=== PATIENT | female | born 1940 | race Caucasian/White ===

== ENCOUNTER → 2020-06-17 | Outpatient (CLI) | payer MEDICARE ==
[~2020-06-17] MED LIST: ADV250INH INH; METO1TAB32 PO; ROSU10TA6 PO; SYNT100T PO
== END ==
LOC: M LABSMTC 09:13
PROVIDERS: ATTEND Anesthesiology
DX: Z01.812 Encounter for preprocedural laboratory examination (principal); Z20.828 Contact with and (suspected) exposure to other viral communicable diseases
CPT/HCPCS: C9803; U0003

== ENCOUNTER 2020-06-21 08:16 | Day surgery (SDC) | payer MEDICARE ==
[~2020-06-21] VITALS: Ht 167.6 cm; Wt 58.5 kg
[2020-06-21] MEDS: D5W 1,000 ML IV SCH ×3 (08:45→11:09)
[2020-06-21] MEDS ORDERED: ALBUTEROL SULFATE 2.5 MG/0.5 ML INH NEB SOLN INH ONE ×2 (09:15)
[2020-06-21] MEDS ORDERED: LIDOCAINE 4% INJ 5ML AMP NEB ONE (09:15)
[2020-06-21] MEDS ORDERED: EPINEPHrine 1MG/10ML SYRINGE 1.5IN As Ordered ONE ×2 (09:26→09:31)
[2020-06-21] MEDS ORDERED: LIDOCAINE VISCOUS 2% SOLN 15ML UDC As Ordered ONE (09:26)
[2020-06-21] MEDS ORDERED: LIDOCAINE 1% MDV 20ML VIAL As Ordered ONE (09:26)
[2020-06-21] MEDS ORDERED: CETACAINE SPRAY 5GM As Ordered ONE (09:28)
[2020-06-21] MEDS ORDERED: PHENYLEPHRINE 0.5% NASAL SPRAY 15 ML As Ordered ONE (09:28)
[2020-06-21] MEDS ORDERED: LIDOCAINE 4% INJ 5ML AMP As Ordered ONE (09:28)
[2020-06-21] MEDS ORDERED: MIDAZOLAM INJ 2MG/2ML VIAL (J2250 PER 1MG) As Ordered ONE ×2 (09:32→09:33)
[2020-06-21] MEDS ORDERED: fentaNYL 100 MCG/2 ML INJECTION (J3010) As Ordered ONE (09:34)
[2020-06-21] MEDS ORDERED: MIDAZOLAM INJ 2MG/2ML VIAL (J2250 PER 1MG) IV ONE ×2 (09:56→10:03)
[2020-06-21] MEDS ORDERED: fentaNYL 100 MCG/2 ML INJECTION (J3010) IV ONE (09:56)
[2020-06-21] MEDS ORDERED: THROMBIN SOLN 5,000 UNITS VIAL As Ordered ONE (10:19)
[2020-06-21 11:15] VITALS: BP 129/69
--- NOTE | 2020-06-28 09:32 | RO ---
DATE OF OPERATION: 06/21/2020 PROCEDURE: Fiberoptic bronchoscopy with wash, brushes, and photos. SURGEON: Migue Jordan MD PREOPERATIVE DIAGNOSIS: Abnormal CT scan. POSTOPERATIVE DIAGNOSIS: Abnormal CT scan, chronic obstructive bronchitis, and extrinsic compression of the left lower lobe. Informed consent was obtained prior to the procedure. ANESTHESIA: Conscious sedation with 4 mg of intravenous Versed and 25 mcg of intravenous Fentanyl, both given sequentially and titrated for effect. Local anesthesia was 2% viscous Xylocaine Other medications were 2% viscous Xylocaine in the nose, Cetacaine spray in the pharynx, 1% Xylocaine via the bronchoscope. Other medications: Topical thrombin 5000 units via the bronchoscope. PROCEDURE: After the patient was identified and the above anesthesia given, the fiberoptic bronchoscope was easily passed via the right naris. Hypopharynx was entered and appeared normal. Vocal cords moved well. Trachea widely patent. Tamara was sharp and moved well. Right lung was entered first. All segments, subsegments, upper, middle and lower lobes easily identified, widely patent. Diffuse changes of chronic bronchitis were noted. Left lung was then entered. Left mainstem widely patent. Left upper lobe easily identified. Again, changes of chronic bronchitis were noted. Thick retained secretions were noticed in the left lower lobe bronchus. These were suctioned and clear. The bronchus to the left lower lobe just past the takeoff of the superior segment showed significant medial compromise extrinsically. Mucosa was intact. I was barely able to get the scope past it to the distal subsegments. Some secretions were encountered. Additionally the airways appeared open without any other focal endobronchial mucosa or abnormalities. Washes and brushes of the area were taken but given the fact that this was submucosal, biopsies of this area were not taken. Some mild bleeding was encountered, easily controlled with topical saline lavage and topical thrombin. When adequate hemostasis was achieved, the scope was then withdrawn and the procedure terminated. The patient was taken to the recovery area in good and stable condition. No immediate complications of conscious sedation were identified. CHRISTA
== END 2020-06-21 11:28 | disposition home or self-care (01) ==
LOC: M OPP 08:16
PROVIDERS: ATTEND Internal Medicine Pulmonary Disease
DX: J42 Unspecified chronic bronchitis (principal); J98.09 Other diseases of bronchus, not elsewhere classified; R91.8 Other nonspecific abnormal finding of lung field
CPT/HCPCS: 31623; 31625; 87070; 87077; 87102; 87116; 87184; 87205; 87206; 88104; J2250; J3010

== ENCOUNTER → 2020-10-01 | Outpatient (CLI) | payer MEDICARE ==
[~2020-10-01] MED LIST changes: +LABE100T4 PO; +OMEP-221 PO; +SPIR1CAP INH
== END ==
LOC: M LABSMTC 08:04
PROVIDERS: ATTEND Anesthesiology
DX: Z01.812 Encounter for preprocedural laboratory examination (principal); Z20.822 Contact with and (suspected) exposure to COVID-19

== ENCOUNTER 2020-10-06 11:49 | Day surgery (SDC) | payer MEDICARE ==
[~2020-10-06] VITALS: Ht 167.6 cm; Wt 61.1 kg
[2020-10-06] MEDS ORDERED: NS 1,000 ML IV ONE (12:45)
[2020-10-06 14:20] VITALS: BP 144/67
--- NOTE | 2020-10-06 14:26 | ROOR ---
Patient Name: Lois Camarena Procedure Date: 10/06/2020 1:33 PM Date of : 1940 Age: 80 Room: [facility] Gender: Female Note Status: Finalized Procedure: Upper GI endoscopy Indications: Abnormal CT of the GI tract Providers: Pool Colon MD Referring MD: Vamshi Pardo MD Requesting Provider: Medicines: Monitored Anesthesia Care Complications: No immediate complications. Procedure: Pre-Anesthesia Assessment: - Prior to the procedure, a History and Physical was performed, and patient medications and allergies were reviewed. The patient is competent. The risks and benefits of the procedure and the sedation options and risks were discussed with the patient. All questions were answered and informed consent was obtained. Patient identification and proposed procedure were verified by the physician, the nurse and the anesthesiologist in the procedure room. Mental Status Examination: alert and oriented. Airway Examination: normal oropharyngeal airway and neck mobility. Respiratory Examination: clear to auscultation. CV Examination: normal. Prophylactic Antibiotics: The patient does not require prophylactic antibiotics. Prior Anticoagulants: The patient has taken no previous anticoagulant or antiplatelet agents. ASA Grade Assessment: II - A patient with mild systemic disease. After reviewing the risks and benefits, the patient was deemed in satisfactory condition to undergo the procedure. The anesthesia plan was to use monitored anesthesia care (MAC). Immediately prior to administration of medications, the patient was re-assessed for adequacy to receive sedatives. The heart rate, respiratory rate, oxygen saturations, blood pressure, adequacy of pulmonary ventilation, and response to care were monitored throughout the procedure. The physical status of the patient was re-assessed after the procedure. The Endoscope was introduced through the mouth, and advanced to the second part of duodenum. The upper GI endoscopy was accomplished without difficulty. The patient tolerated the procedure well. Findings: Patchy, white plaques were found in the upper third of the esophagus and in the middle third of the esophagus. Cells for cytology were obtained by brushing. Verification of patient identification for the specimen was done by the physician and nurse using the patient's name, date and medical record number. Estimated blood loss was minimal. One non-bleeding superficial gastric ulcer with a clean ulcer base (Herrrea Class III) was found on the lesser curvature of the gastric antrum. The lesion was 10 mm in largest dimension. Biopsies were taken with a cold forceps for histology. Biopsies were taken with a cold forceps for Helicobacter pylori testing. The duodenal bulb and second portion of the duodenum were normal. Impression: - Esophageal plaques were found, suspicious for candidiasis. Cells for cytology obtained. - Non-bleeding gastric ulcer with a clean ulcer base (Herrera Class III). Biopsied. - Normal duodenal bulb and second portion of the duodenum. Recommendation: - Patient has a contact number available for emergencies. The signs and symptoms of potential delayed complications were discussed with the patient. Return to normal activities tomorrow. Written discharge instructions were provided to the patient. - High fiber diet. - Continue present medications. - Await pathology results. - Use Prilosec (omeprazole) 40 mg PO Daily - to be taken hospital coder on empty stomach for 8 weeks. - Telephone GI clinic for pathology results in 2 weeks. - Return to primary care physician. Procedure Code(s): --- Professional --- 64535, Esophagogastroduodenoscopy, flexible, transoral; with biopsy, single or multiple Diagnosis Code(s): --- Professional --- K22.9, Disease of esophagus, unspecified K25.9, Gastric ulcer, unspecified as acute or chronic, without hemorrhage or perforation R93.3, Abnormal findings on diagnostic imaging of other parts of digestive tract CPT copyright 2019 [employer]. All rights reserved. The codes documented in this report are preliminary and upon inpatient coder review may be revised to meet current compliance requirements. Pool Colon MD Pool Colon MD 10/06/2020 2:25:44 PM Electronically signed by Pool Colon MD Number of Addenda: 0 Note Initiated On: 10/06/2020 1:33 PM Estimated Blood Loss: Estimated blood loss was minimal.
== END 2020-10-06 14:32 | disposition home or self-care (01) ==
LOC: M OPP 11:49
PROVIDERS: ATTEND Internal Medicine Gastroenterology
DX: R93.3 Abnormal findings on diagnostic imaging of other parts of digestive tract (principal); D13.1 Benign neoplasm of stomach; K22.9 Disease of esophagus, unspecified; K25.9 Gastric ulcer, unspecified as acute or chronic, without hemorrhage or perforation; I10 Essential (primary) hypertension; E78.5 Hyperlipidemia, unspecified; E03.9 Hypothyroidism, unspecified; R12 Heartburn; J44.9 Chronic obstructive pulmonary disease, unspecified; Z79.899 Other long term (current) drug therapy; Z82.49 Family history of ischemic heart disease and other diseases of the circulatory system

== ENCOUNTER → 2021-01-26 | Outpatient (REF) | payer MEDICARE | LOC: M WUC 10:17 | PROVIDERS: ATTEND Physician Assistant | DX: R30.0 Dysuria (principal) ==

== ENCOUNTER → 2021-11-20 | Outpatient (CLI) | payer MEDICARE ==
[~2021-11-20] MED LIST changes: -OMEP-221 PO; +OMEP40CA5 PO
== END ==
LOC: M WUC 10:01
PROVIDERS: ATTEND Internal Medicine Pulmonary Disease
DX: R91.8 Other nonspecific abnormal finding of lung field (principal); J43.9 Emphysema, unspecified; J84.9 Interstitial pulmonary disease, unspecified

== ENCOUNTER → 2022-07-09 | Outpatient (CLI) | payer MEDICARE ==
[~2022-07-09] MED LIST changes: -LABE100T4 PO; +LABE100T6 PO
== END ==
LOC: M WUC 12:55
PROVIDERS: ATTEND Physician Assistant
DX: R05.9 Cough, unspecified (principal); J44.1 Chronic obstructive pulmonary disease with (acute) exacerbation; I50.9 Heart failure, unspecified; J90 Pleural effusion, not elsewhere classified; I27.20 Pulmonary hypertension, unspecified; I70.0 Atherosclerosis of aorta; Z95.1 Presence of aortocoronary bypass graft

== ENCOUNTER 2022-09-24 16:03 | Emergency (ER) | payer MEDICARE ==
[~2022-09-24] VITALS: Ht 167.6 cm; Wt 50.9 kg
[2022-09-24 16:07] VITALS: BP 150/86
[2022-09-24] MEDS ORDERED: MUCI600T31 PO (17:05)
[2022-09-24] MEDS ORDERED: ALBU2.5V10 INH (17:07)
[2022-09-25] MEDS ORDERED: ADV500INH INH (12:13)
[2022-09-25] MEDS ORDERED: DOXY-443 PO (12:13)
[2022-09-25] MEDS ORDERED: PRED10TA2 PO (12:13)
[2022-09-25] MEDS ORDERED: BUDE0.5S6 INH (12:13)
[2022-09-25] MEDS ORDERED: MAGN500T12 PO (15:41)
[2022-09-25] MEDS ORDERED: ACET-907 PO (15:42)
[2022-09-25] MEDS ORDERED: MED REC COMMENT (15:43)
== END 2022-09-24 17:20 | disposition left against medical advice (07) ==
LOC: M ED 16:03
DX: Z53.21 Procedure and treatment not carried out due to patient leaving prior to being seen by health care provider (principal)

== ENCOUNTER 2022-09-25 11:52 | Inpatient (IN) | payer MEDICARE ==
[2022-09-25] VITALS (7 sets, daily range): BP systolic 115–210; BP diastolic 87–100; O2SAT 96–99
[~2022-09-25] VITALS: Ht 167.6 cm; Wt 50.5 kg
[~2022-09-25 11:52] MED LIST changes: +ALBU2.5V10 INH; +MUCI600T31 PO
[2022-09-25] MEDS ORDERED: BUDE0.5S6 INH (12:13)
[2022-09-25] MEDS ORDERED: ADV500INH INH (12:13)
[2022-09-25] MEDS ORDERED: PRED10TA2 PO (12:13)
[2022-09-25] MEDS ORDERED: DOXY-443 PO (12:13)
[2022-09-25] MEDS: IPRATROPIUM 0.5MG/ALBUTEROL 2.5MG INH SOL UD 3ML (DUONEB) NEB PRN ×3 (12:36→13:12)
[2022-09-25 12:47] LABS: BASO % 0.1 % (0.0-1.0); HEMATOCRIT 41.9 % (36.0-47.0); HEMOGLOBIN 13.8 g/dl (12.0-15.5); LYMPH # 0.3 10^3/uL (1.5-5.0); LYMPH % 3.1 % (24.0-44.0); MEAN CORPUSCULAR HEMOGLOBIN 31.9 pg (27.0-33.0); MEAN CORPUSCULAR HGB CONC 32.9 g/dl (32.0-36.5); MONO # 0.4 10^3/uL (0.0-0.8); MONO % 3.8 % (2.0-8.0); NEUTROPHILS # 9.7 10^3/uL (1.5-8.5); NEUTROPHILS % 92.5 % (36.0-66.0); PLATELET COUNT, AUTOMATED 128 10^3/uL (150-450); RED BLOOD COUNT 4.32 10^6/uL (4.00-5.40); WHITE BLOOD COUNT 10.5 10^3/uL (4.0-10.0)
[2022-09-25 12:50] LABS: ABG BASE EXCESS 2.5 (-2.0-2.0); ABG HCO3 27.8 MEQ/L (22.0-26.0); ABG O2 SATURATION 98.8 % (95.0-99.0); ABG PARTIAL PRESSURE CO2 45.1 mmHg (35.0-45.0); ABG PARTIAL PRESSURE O2 131.1 mmHg (75.0-100.0); ABG STANDARD HCO3 26.7 MEQ/L (22.0-26.0); ABG TOTAL CO2 29.1 MEQ/L (23.0-31.0); ABG pH (ARTERIAL) 7.407 UNITS (7.350-7.450)
[2022-09-25 13:05] LABS: INR 0.82; PROTHROMBIN TIME 11.5 SECONDS (12.5-14.5)
[2022-09-25 13:22] LABS: BILIRUBIN,DIRECT 0.2 MG/DL (<0.4)
[2022-09-25 13:23] LABS: ALBUMIN 3.3 G/DL (3.2-5.2); ALKALINE PHOSPHATASE 64 U/L (46-116); ALT/SGPT 12 U/L (7.0-40); AST/SGOT 34 U/L (<34); BILIRUBIN,TOTAL 0.6 MG/DL (0.3-1.2); BLOOD UREA NITROGEN 22 MG/DL (9-23); CALCIUM LEVEL 8.4 MG/DL (8.3-10.6); CARBON DIOXIDE LEVEL 28 MMOL/L (20-31); CHLORIDE LEVEL 91 MMOL/L (98-107); CK-MB VALUE MASS 4.4 NG/ML (<3.6); CPK CREATINE PHOSPHOKINASE 108 U/L (34-145); CREATININE FOR GFR 0.58 MG/DL (0.55-1.30); GLOMERULAR FILTRATION RATE > 60.0 (>32); GLUCOSE, FASTING 146 MG/DL (74-106); MB/CK RELATIVE INDEX 4.07 (< OR =4); POTASSIUM SERUM 3.8 MMOL/L (3.5-5.1); SODIUM LEVEL 130 MMOL/L (136-145); TOTAL PROTEIN 6.7 G/DL (5.7-8.2)
[2022-09-25 13:26] LABS: THYROID STIMULATING HORMONE 8.713 uIU/ML (0.55-4.78)
[2022-09-25 14:13] LABS: CK-MB VALUE MASS 5.1 NG/ML (<3.6); MB/CK RELATIVE INDEX 4.85 (< OR =4)
[2022-09-25] MEDS ORDERED: cefTRIAXone SOD 1 GM in D5W MINI-BAG PLUS 50 ML IV ONE (14:25)
[2022-09-25] MEDS ORDERED: AZITHROMYCIN 250MG TABLET PO ONE (14:25)
[2022-09-25] MEDS ORDERED: ISOVUE-370 76% 100ML VIAL As Ordered ONE (15:05)
[2022-09-25] MEDS ORDERED: MAGN500T12 PO (15:41)
[2022-09-25] MEDS ORDERED: ACET-907 PO (15:42)
[2022-09-25] MEDS ORDERED: MED REC COMMENT (15:43)
[2022-09-25] MEDS ORDERED: HOME MED LIST COMPLETE! XX SCH (15:50)
[2022-09-25] MEDS ORDERED: LABETALOL 100MG/20ML VIAL IV STA (16:08)
[2022-09-25] MEDS ORDERED: IPRATROPIUM 0.5MG/ALBUTEROL 2.5MG INH SOL UD 3ML (DUONEB) NEB PRN (16:15)
[2022-09-25] MEDS ORDERED: NS 1,000 ML IV ONE (16:20)
[2022-09-25] MEDS ORDERED: ACETAMINOPHEN TAB 650MG DOSE (2X325MG) PO PRN (16:20)
[2022-09-25] MEDS ORDERED: OSELTAMIVIR PHOSPHATE 75 MG CAP (TAMIFLU) PO SCH (17:00)
[2022-09-25] MEDS: LEVALBUTEROL 1.25MG 0.5ML CONCENTRATE NEB NEB SCH (19:28)
[2022-09-25] MEDS: guaiFENesin ER 600 MG TAB PO SCH (20:14)
[2022-09-25] MEDS: methylPREDNISolone 40MG 1ML VIAL IV SCH (20:16)
[2022-09-25] MEDS: METOPROLOL TART 50 MG TAB PO SCH (20:16)
[2022-09-25] MEDS: OSELTAMIVIR PHOSPHATE 75 MG CAP (TAMIFLU) PO SCH (20:17)
[2022-09-25] MEDS ORDERED: ROSUVASTATIN 10 MG TAB (CRESTOR) PO SCH (21:00)
[2022-09-25] MEDS ORDERED: DOXYCYCLINE HYCLATE 100 MG in D5W MINI-BAG PLUS 100 ML IV SCH (21:00)
[2022-09-26] VITALS (22 sets, daily range): BP systolic 154–204; BP diastolic 72–100; O2SAT 89–97
[2022-09-26] MEDS ORDERED: LABETALOL 100MG/20ML VIAL IV ONE (00:15)
[2022-09-26] MEDS: LEVALBUTEROL 1.25MG 0.5ML CONCENTRATE NEB NEB SCH (01:08)
[2022-09-26] MEDS ORDERED: hydrALAZINE 20MG/ML 1ML VIAL IV ONE (01:10)
[2022-09-26] MEDS ORDERED: LEVALBUTEROL 1.25MG 0.5ML CONCENTRATE NEB NEB PRN (04:00)
[2022-09-26] MEDS: IPRATROPIUM 0.5MG/ALBUTEROL 2.5MG INH SOL UD 3ML (DUONEB) NEB SCH ×6 (04:34→23:28)
[2022-09-26] MEDS ORDERED: LEVOTHYROXINE 125MCG TABLET (0.125MG) PO SCH (06:00)
[2022-09-26] MEDS ORDERED: LEVOTHYROXINE 100MCG TABLET (0.1MG) PO SCH (06:00)
[2022-09-26] MEDS ORDERED: cefTRIAXone SOD 2 GM in D5W MINI-BAG PLUS 50 ML IV SCH (06:00)
[2022-09-26 06:30] LABS: HEMATOCRIT 37.7 % (36.0-47.0); HEMOGLOBIN 12.9 g/dl (12.0-15.5); MEAN CORPUSCULAR HEMOGLOBIN 32.4 pg (27.0-33.0); MEAN CORPUSCULAR HGB CONC 34.2 g/dl (32.0-36.5); MEAN CORPUSCULAR VOLUME 94.7 fl (80.0-96.0); PLATELET COUNT, AUTOMATED 125 10^3/uL (150-450); RED BLOOD COUNT 3.98 10^6/uL (4.00-5.40); WHITE BLOOD COUNT 6.5 10^3/uL (4.0-10.0)
[2022-09-26 07:00] LABS: BLOOD UREA NITROGEN 20 MG/DL (9-23); CALCIUM LEVEL 8.1 MG/DL (8.3-10.6); CARBON DIOXIDE LEVEL 27 MMOL/L (20-31); CHLORIDE LEVEL 87 MMOL/L (98-107); CREATININE FOR GFR 0.48 MG/DL (0.55-1.30); GLOMERULAR FILTRATION RATE > 60.0 (>32); GLUCOSE, FASTING 128 MG/DL (74-106); POTASSIUM SERUM 3.6 MMOL/L (3.5-5.1); SODIUM LEVEL 124 MMOL/L (136-145)
[2022-09-26 07:38] LABS: OSMOLALITY SERUM 261 MOSM/KG (280-301)
[2022-09-26] MEDS ORDERED: ENOXAPARIN 40MG/0.4ML SYRINGE (J1650 PER 10MG) SC SCH (09:00)
[2022-09-26] MEDS ORDERED: PANTOPRAZOLE 40MG TAB (PROTONIX) PO SCH (09:00)
[2022-09-26] MEDS ORDERED: DOXYCYCLINE HYCLATE 100MG TABLET PO SCH (09:00)
[2022-09-26] MEDS ORDERED: amLODIPine 5 MG TAB PO SCH (09:00)
[2022-09-26] MEDS: methylPREDNISolone 40MG 1ML VIAL IV SCH ×2 (09:17→21:00)
[2022-09-26] MEDS: METOPROLOL TART 50 MG TAB PO SCH (09:18)
[2022-09-26] MEDS: guaiFENesin ER 600 MG TAB PO SCH ×2 (09:18→21:00)
[2022-09-26] MEDS: OSELTAMIVIR PHOSPHATE 75 MG CAP (TAMIFLU) PO SCH (09:18)
[2022-09-26] MEDS ORDERED: LABETALOL 100MG/20ML VIAL IV STA (10:47)
[2022-09-26] MEDS ORDERED: ACETAMINOPHEN TAB 650MG DOSE (2X325MG) PO PRN (16:30)
[2022-09-26] MEDS ORDERED: BISACODYL 10MG SUPP PR PRN (16:30)
[2022-09-26] MEDS ORDERED: ACETAMINOPHEN 650MG SUPP PR PRN (16:30)
[2022-09-26] MEDS ORDERED: HYOSCYAMINE SULFATE 0.125 MG SUBL TABLET PO PRN (16:30)
[2022-09-26] MEDS ORDERED: FLEET ENEMA PR PRN (16:30)
[2022-09-26] MEDS ORDERED: ONDANSETRON 4MG ORAL DISINTEGRATING TAB PO PRN (16:30)
[2022-09-26] MEDS ORDERED: MORPHINE 10MG/0.5ML ORAL CONCENTRATE SOLUTION U/D SL PRN (16:30)
[2022-09-26] MEDS ORDERED: ATROPINE SULFATE 1% OPHTH SOLN 2ML BTL SL PRN (16:30)
[2022-09-26] MEDS ORDERED: LORazepam 1 MG TAB PO PRN (16:30)
[2022-09-26] MEDS ORDERED: ONDANSETRON 4MG 2ML VIAL IV PRN (16:30)
[2022-09-27] MEDS: IPRATROPIUM 0.5MG/ALBUTEROL 2.5MG INH SOL UD 3ML (DUONEB) NEB SCH ×6 (03:47→23:10)
[2022-09-27] MEDS: guaiFENesin ER 600 MG TAB PO SCH ×2 (09:00→21:00)
[2022-09-27] MEDS: methylPREDNISolone 40MG 1ML VIAL IV SCH ×2 (09:30→20:49)
[2022-09-27] MEDS ORDERED: ATIV1TAB10 PO (11:46)
[2022-09-27] MEDS ORDERED: HYOS125TA PO (11:46)
[2022-09-27] MEDS ORDERED: MORP1SOL5 PO (11:46)
[2022-09-27] MEDS: SCOPOLAMINE 1MG TRANSDERMAL PATCH TOP PRN (11:52)
[2022-09-27] MEDS: LORazepam 2 MG/ML VIAL IV PRN (20:49)
[2022-09-28] MEDS: IPRATROPIUM 0.5MG/ALBUTEROL 2.5MG INH SOL UD 3ML (DUONEB) NEB SCH ×6 (03:15→23:38)
[2022-09-28] MEDS: LORazepam 2 MG/ML VIAL IV PRN ×3 (05:19→21:25)
[2022-09-28] MEDS: guaiFENesin ER 600 MG TAB PO SCH ×2 (09:00→20:22)
[2022-09-28] MEDS: methylPREDNISolone 40MG 1ML VIAL IV SCH ×2 (09:47→21:00)
[2022-09-28] MEDS: MORPHINE 2 MG/ML 1ML VIAL IV PRN (11:45)
[2022-09-29] MEDS: IPRATROPIUM 0.5MG/ALBUTEROL 2.5MG INH SOL UD 3ML (DUONEB) NEB SCH ×5 (03:38→21:30)
[2022-09-29] MEDS: LORazepam 2 MG/ML VIAL IV PRN ×3 (04:32→18:02)
[2022-09-29] MEDS: guaiFENesin ER 600 MG TAB PO SCH ×2 (08:50→20:22)
[2022-09-29] MEDS: methylPREDNISolone 40MG 1ML VIAL IV SCH ×2 (10:04→20:41)
[2022-09-29] MEDS: MORPHINE 2 MG/ML 1ML VIAL IV PRN (13:20)
[2022-09-30] MEDS: IPRATROPIUM 0.5MG/ALBUTEROL 2.5MG INH SOL UD 3ML (DUONEB) NEB SCH ×6 (00:58→20:00)
[2022-09-30] MEDS: LORazepam 2 MG/ML VIAL IV PRN ×4 (05:44→22:52)
[2022-09-30] MEDS: guaiFENesin ER 600 MG TAB PO SCH ×2 (09:00→20:19)
[2022-09-30] MEDS: methylPREDNISolone 40MG 1ML VIAL IV SCH (09:36)
[2022-09-30] MEDS: SCOPOLAMINE 1MG TRANSDERMAL PATCH TOP PRN (12:44)
[2022-09-30] MEDS: MORPHINE 2 MG/ML 1ML VIAL IV PRN ×3 (12:44→21:19)
[2022-10-01] MEDS: MORPHINE 2 MG/ML 1ML VIAL IV PRN ×6 (00:40→19:31)
[2022-10-01] MEDS: LORazepam 2 MG/ML VIAL IV PRN ×6 (02:15→22:02)
[2022-10-01] MEDS: guaiFENesin ER 600 MG TAB PO SCH ×2 (07:16→20:24)
[2022-10-02 17:08] LABS: BODY FLUID CULTURE Not indicated. (.); LEGIONELLA ANTIGEN URINE Negative (Negative); ORGANISM ID Not indicated. (.); SPECIMEN SOURCE Urine (.); URINE STREP PNEUMONIAE ANTIGEN Negative (Negative)
== END 2022-10-01 22:51 | disposition expired | DRG 193 ==
LOC: EDBD 11:52 → M ED 11:52 → M ED INP 16:08 → ENRESERV 16:39 → M PCU 17:53
PROVIDERS: ADMIT Internal Medicine; ATTEND Internal Medicine
DX: J09.X1 Influenza due to identified novel influenza A virus with pneumonia (principal); J96.01 Acute respiratory failure with hypoxia; I21.A1 Myocardial infarction type 2; J44.1 Chronic obstructive pulmonary disease with (acute) exacerbation; E87.1 Hypo-osmolality and hyponatremia; J44.0 Chronic obstructive pulmonary disease with (acute) lower respiratory infection; J15.9 Unspecified bacterial pneumonia; Z66 Do not resuscitate; E03.9 Hypothyroidism, unspecified; I10 Essential (primary) hypertension; E78.5 Hyperlipidemia, unspecified; Z95.2 Presence of prosthetic heart valve; I16.0 Hypertensive urgency; R00.0 Tachycardia, unspecified; J20.8 Acute bronchitis due to other specified organisms; Z79.899 Other long term (current) drug therapy; Z20.822 Contact with and (suspected) exposure to COVID-19